=== PATIENT | female | born 1960 | race Two or more races ===

== ENCOUNTER 2017-11-21 08:50 | Outpatient (CLI) | payer OTHER ==
[~2017-11-21 08:50] MED LIST: BENICAR20 MG
== END 2017-11-21 09:05 | disposition home or self-care (01) ==
LOC: LAB 08:50
DX: E11.65 Type 2 diabetes mellitus with hyperglycemia (principal); E10.65 Type 1 diabetes mellitus with hyperglycemia; E03.8 Other specified hypothyroidism; E05.90 Thyrotoxicosis, unspecified without thyrotoxic crisis or storm; E78.2 Mixed hyperlipidemia; E55.9 Vitamin D deficiency, unspecified; D64.89 Other specified anemias; N39.0 Urinary tract infection, site not specified; E21.2 Other hyperparathyroidism; E24.8 Other Cushing's syndrome; E28.310 Symptomatic premature menopause; E22.1 Hyperprolactinemia; E72.11 Homocystinuria; E72.12 Methylenetetrahydrofolate reductase deficiency; I63.8 Other cerebral infarction

== ENCOUNTER → 2019-07-18 12:08 | Outpatient (CLI) | payer OTHER | END | disposition home or self-care (01) | LOC: LAB 12:08 | DX: R53.83 Other fatigue (principal); D70.8 Other neutropenia; E72.12 Methylenetetrahydrofolate reductase deficiency; I77.6 Arteritis, unspecified ==

== ENCOUNTER 2019-09-08 10:18 | Emergency (ER) | payer OTHER ==
[~2019-09-08] VITALS: Ht 170.2 cm; Wt 90.7 kg
[2019-09-08] MEDS ORDERED: SYNTHROID50 MCG PO (10:37)
[2019-09-08] MEDS ORDERED: BENICAR HCT 201 EACH PO (10:38)
[2019-09-08] MEDS ORDERED: JANUMET 50-1,01 EACH PO (10:38)
== END 2019-09-08 13:38 | disposition home or self-care (01) ==
LOC: ER 10:18
DX: K21.9 Gastro-esophageal reflux disease without esophagitis (principal); R10.11 Right upper quadrant pain

== ENCOUNTER 2024-10-06 12:28 | Emergency (ER) | payer OTHER ==
[~2024-10-06] VITALS: Ht 167.6 cm; Wt 90.7 kg
[~2024-10-06 12:28] MED LIST changes: +BENICAR HCT 201 EACH PO; +JANUMET 50-1,01 EACH PO; +SYNTHROID50 MCG PO
[2024-10-06] MEDS ORDERED: FAMOTIDINE/PF 20 MG/2 ML VIAL IV ONE (14:45)
[2024-10-06] MEDS ORDERED: KETOROLAC TROMETHAMINE 30 MG VIAL IV ONE (14:45)
[2024-10-06] MEDS ORDERED: 0.9 % SODIUM CHLORIDE 500 ML IV ONE (14:45)
[2024-10-06] MEDS ORDERED: FAMOTIDINE/PF 20 MG/2 ML VIAL ONE (15:00)
[2024-10-06] MEDS ORDERED: KETOROLAC TROMETHAMINE 30 MG VIAL ONE (15:00)
[2024-10-06 15:20] LABS: BASO % 0.2 % (0.1-1.2); EOS # 0.09 (0.04-0.54); HEMATOCRIT 38.8 % (34.1-44.9); HEMOGLOBIN 13.1 g/dL (11.2-15.7); LYMPH % 23.3 % (19.3-53.1); MEAN CORPUSCULAR HEMOGLOBIN 29.9 pg (25.6-32.2); MONO # 0.71 (0.24-0.82); MONO % 8.3 % (4.7-12.5); NEUT # 5.75 (1.56-6.13); NEUT % 67.1 % (34.0-71.1); PLATELET COUNT 207 K/uL (163-369); RED BLOOD COUNT 4.38 M/uL (3.93-5.22); RED CELL DISTRIBUTION WIDTH 13.2 % (11.6-14.4)
[2024-10-06 15:42] LABS: ALBUMIN 3.7 gm/dL (3.4-5.0); BILIRUBIN TOTAL 1.4 mg/dL (0.3-1.2); CALCIUM 8.5 mg/dL (8.5-10.1); CREATININE SERUM 0.68 mg/dL (0.55-1.02); GFR 87.11; GLOBULINA 3.9 G/DL (2.4-3.5); POTASSIUM 3.47 mEq/L (3.5-5.1); TOTAL PROTEIN 7.6 gm/dL (6.4-8.2)
[2024-10-06 16:38] LABS: PH,URINE 5.5 (5.0-8.0); URINE APPEARANCE Clear; URINE BILIRRUBIN Negative (NEGATIVE); URINE BLOOD Negative; URINE COLOR Dark Yellow; URINE GLUCOSE Negative (NEGATIVE); URINE KETONE 15 (NEGATIVE); URINE LEUKOCYTE Negative; URINE NITRATE Negative; URINE PROTEIN Negative (NEGATIVE)
[2024-10-06 16:41] LABS: URINE BACTERIA 8.5 uL (0.0-1933); URINE EPITHELIAL CELLS 5.9 uL (0.0-38.8); URINE RBC 8.9 uL (0.0-20.8)
[2024-10-06] MEDS ORDERED: METRONIDAZOLE500 MG PO (18:35)
[2024-10-06] MEDS ORDERED: CIPRO500 MG PO (18:35)
[2024-10-06] MEDS ORDERED: PEPCID AC20 MG PO (18:35)
[2024-10-06] MEDS ORDERED: INTESTINEX680 M1 PO (18:35)
== END 2024-10-06 18:49 | disposition home or self-care (01) ==
LOC: ER 12:40
PROVIDERS: Emergency Medicine
DX: K57.92 Diverticulitis of intestine, part unspecified, without perforation or abscess without bleeding (principal); R10.32 Left lower quadrant pain; R10.2 Pelvic and perineal pain; I10 Essential (primary) hypertension; E03.8 Other specified hypothyroidism